=== PATIENT | male | born 1995 | race Caucasian/White ===

== ENCOUNTER 2016-10-20 01:03 | Emergency (ER) | payer BC ==
[2016-10-20] MEDS ORDERED: Lidocaine/Epineph/Tetraca SOL* (LET solution) 4 ML BTL ONE (01:41)
[2016-10-20] MEDS ORDERED: ceFAZolin 1 GM ADVAN(*) 1 GM in NS 0.9% 50 ML* 50 ML IVPB ONE (01:44)
[2016-10-20] MEDS ORDERED: Lidocaine/Epineph/Tetraca SOL* (LET solution) 4 ML BTL TOPICAL ONE (01:52)
[2016-10-20 02:17] LABS: Hematocrit 43 % (42-52); Hemoglobin 14.6 g/dl (14.0-18.0); Mean Corpuscular HGB Conc 34 g/dl (31-36); Mean Corpuscular Hemoglobin 30 pg (27-31); Mean Corpuscular Volume 89 fL (80-94); Mean Platelet Volume 8 um3 (7.4-10.4); Red Blood Count 4.87 10^6/ul (4.0-5.4); Red Cell Distribution Width 13 % (10.5-15); White Blood Count 6.6 10^3/ul (3.5-10.8)
[2016-10-20 02:26] LABS: Albumin 4.5 g/dL (3.2-5.2); Calcium 8.8 mg/dL (8.6-10.3); EGFR African American 162.5 (>60); EGFR Non-African American 126.4 (>60); Globulin 2.6 g/dL (2-4); Potassium 3.9 mmol/L (3.5-5.0); Total Bilirubin 0.3 mg/dL (0.2-1.0); Total Protein 7.1 g/dL (6.4-8.9)
--- NOTE | 2016-10-20 02:52 | ED ---
Sai Prince Alfonso, scribed for Martinez Johnson on 10/20/16 at 0154 . 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 Mother reports he fell getting out of truck against another truck. Pt rates the pain 8/10 in severity. Symptoms aggravated and alleviated by nothing. Mother reports facial laceration, head trauma, LOC ( few minutes), and neck pain. Pt denies any PMHx. - History of Current Complaint Chief Complaint: EDHeadInjury Stated Complaint: RT EYE INJURY Time Seen by Provider: 10/20/16 01:32 Hx Obtained From: Patient Mechanism of Injury: Fall Loss of Consciousness: prolonged (minutes) Onset/Duration: Started Hours Ago - 1 hour HOSPITAL NURSING ASSISTANT, Still Present Onset of Pain: Prior to Arrival Onset Severity: Moderate Current Severity: Moderate Pain Intensity: 8 Pain Scale Used: 0-10 Numeric Location: Head, Neck Aggravating Factor(s): Nothing Alleviating Factor(s): Nothing Associated Signs & Symptoms: Positive: Other: - Mother reports facial laceration , head trauma, LOC (few minutes), and neck pain. - Allergy/Home Medications Allergies/Adverse Reactions: Allergies Allergy/AdvReac Type Severity Reaction Status Date / Time Amoxicillin Allergy Rash Verified 10/20/16 01:51 PMH/Surg Hx/FS Hx/Imm Hx Sensory History: Denies: Hx Deafness Opthamlomology History: Denies: Hx Legally Blind Infectious Disease History: No Infectious Disease History: Reports: Traveled Outside the [place] in Last 30 Days - [place] - Family History Known Family History: Negative: Diabetes Review of Systems Negative: Fever Positive: Other - Positive fall, head trauma, and neck pain. Positive: Other - Positive facial laceration Neurological: Other - Positive LOC All Other Systems Reviewed And Are Negative: Yes Physical Exam Triage Information Reviewed: Yes Vital Signs On Initial Exam: Initial Vitals Temp Pulse Resp BP Pulse Ox 97.8 F 88 18 132/69 95 10/20/16 01:08 10/20/16 01:08 10/20/16 01:08 10/20/16 01:08 10/20/16 01:08 Vital Signs Reviewed: Yes Appearance: Positive: Well-Appearing, No Pain Distress Skin: Positive: Warm, Skin Color Reflects Adequate Perfusion, Dry, Other - Laceration over the right eye brow. Deep laceration over the right lower eye lid extending all the way in medial canthus. Mild bleeding throughout. Head/Face: Positive: Other - Neck collar applied Eyes: Positive: EOMI, BLESSING ENT: Positive: Normal ENT inspection Neck: Positive: Supple, Nontender Respiratory/Lung Sounds: Positive: Clear to Auscultation, Breath Sounds Present Cardiovascular: Positive: RRR, Pulses are Symmetrical in both Upper and Lower Extremities Abdomen Description: Positive: Nontender, Soft Bowel Sounds: Positive: Present Musculoskeletal: Positive: Normal, Strength/ROM Intact Neurological: Positive: Normal, Sensory/Motor Intact, Alert, Oriented to Person Place, Time Diagnostics - Vital Signs Vital Signs Temp Pulse Resp BP Pulse Ox 10/20/16 01:24 97.8 F 80 16 121/60 97 10/20/16 01:08 97.8 F 88 18 132/69 95 - Laboratory Result Diagrams: 10/20/16 01:56 10/20/16 01:56 Lab Statement: Any lab studies that have been ordered have been reviewed, and results considered in the medical decision making process. - CT Brain CT Interpretation Completed By: Radiologist - No acute intracranial pathology. Depressed right frontal sinus fracture with fracture of the right orbital floor. C-spine CT Interpretation Completed By: Radiologist - There is no fracture, subluxation , prevertebral soft tissue swellingor significant degenerative changes. The lung apices are clear. Maxillofacial CT Interpretation Completed By: Radiologist - Fractures of the right frontal sinus, roof of the right orbit, floor of the right orbit and into wall of the right maxillary sinus. Adult Trauma Course/Dx - Course Assessment/Plan: 20 [facility] mother s/p fall approximately one hour HOSPITAL NURSING ASSISTANT. Mother reports facial laceration, head trauma, LOC (few minutes), and neck pain. CT maxillofacial reveals Fractures of the right frontal sinus, roof of the right orbit, floor of the right orbit and into wall of the right maxillary sinus. CT brain reveals depressed right frontal sinus fracture with fracture of the right orbital floor. CT C-spine reveals there is no fracture, subluxation, prevertebral soft tissue swellingor significant degenerative changes. The lung apices are clear. Consulted Dr. Sutton (ED physician at [facility]) who accepts patient for transfer. Mother of patient is agreeable with this plan. - Diagnoses Differential Diagnosis/HQI/PQRI: Positive: Contusion(s), Fracture, Hematoma(s), Laceration(s), Other - facial bone fx Provider Diagnoses: Laceration, Orbital fracture, Head injury Discharge - Discharge Plan Condition: Stable Disposition: [facility] FAC Referrals: Jil WILKERSON,Sanjeev Yusuf [Primary Care Provider] - 3 Days The documentation as recorded by the Sai hays Alfonso accurately reflects the service I personally performed and the decisions made by Alex ricks Emmanuel.
[2016-10-20] MEDS ORDERED: NS 0.9% 50 ML* 50 ML ONE (02:53)
[2016-10-20 03:07] VITALS: BP 124/61
--- NOTE | 2016-10-20 10:01 | RAD ---
indication: Trauma to the right side of the nose and eyebrow with loss of consciousness after falling and hitting face on tailgate COMPARISON: None A CT scan of the brain, maxillofacial bones and c-spine was performed without intravenous contrast enhancement. Contiguous axial sections were obtained from the lung apices through the vertex of the skull. BRAIN: The ventricles, cisterns and sulci are within normal limits. No significant focal abnormality or mass effect is seen. The choudhary-white differentiation is adequately maintained. There is no evidence for intracranial hemorrhage. The mastoid air cells are appropriately aerated. FACIAL BONES: There is a depressed fracture of the anterior wall of the right frontal sinus with comminution of the fracture fragments depressed into the sinus cavity. Depicted best on the coronal plane images (image 19 of 86) there is depressed fracture of the superior and anterior most portion of the orbit. More inferiorly, there is depressed fracture of the inferior wall of the orbit into the right maxillary sinus (for example coronal image 28). Right maxillary sinus is filled with hyperattenuating fluid and gas. The remaining visualized bones of the face appear to be intact. There is no infiltration of the post septal fat of the right orbit. There is no proptosis of the right globe evident on CT examination. The rectus muscles of the right orbit appear to be appropriately positioned particularly the inferior rectus and inferior oblique muscles. C-SPINE: There is nonspecific straightening and mild degree of reversal of the normal cervical lordosis. Otherwise the vertebral bodies and bilateral facet joints are correctly aligned. The dens is intact and the atlantoaxial interval is not widened. The intervertebral body heights are maintained. There is no prevertebral soft tissue swelling. There is no hyperdense material in the cervical canal to indicate hemorrhage. The visualized musculature and soft tissues are normal. There is no gross lymphadenopathy visualized. The visualized portion of the lung apices are clear. IMPRESSION: 1. There are depressed fractures of the right frontal sinus, roof of the right orbit and an orbital floor "blowout fracture" as described in more detail in the body of the report. 2. No acute intracranial hemorrhage. 3. Nonspecific straightening and even slight reversal of the normal cervical lordosis in an otherwise normal C-spine.
== END 2016-10-20 03:06 | disposition short-term general hospital (02) ==
LOC: ED 01:03
DX: S01.81XA Laceration without foreign body of other part of head, initial encounter (principal); S02.80XA Fracture of other specified skull and facial bones, unspecified side, initial encounter for closed fracture; S09.90XA Unspecified injury of head, initial encounter; M54.2 Cervicalgia; W19.XXXA Unspecified fall, initial encounter; Y93.9 Activity, unspecified; Y92.89 Other specified places as the place of occurrence of the external cause
CPT/HCPCS: 36415; 70450; 70486; 72125; 80053; 85025; 99284